=== PATIENT | male | born 1955 | race Caucasian/White ===

== ENCOUNTER 2017-04-10 16:31 | Emergency (ER) | payer MEDICARE ==
[~2017-04-10] VITALS: Ht 174 cm; Wt 79.0 kg
[2017-04-10 17:11] VITALS: BP 166/100
[2017-04-10] MEDS ORDERED: LIDOCAINE 1%, 20ML ONE (17:11)
[2017-04-10] MEDS ORDERED: LIDOCAINE 1%, 20ML INFIL ONE (17:30)
[2017-04-10] MEDS ORDERED: HYDROcodone/APAP 5/325 TABLET ONE (17:42)
[2017-04-10] MEDS ORDERED: CEFAZOLIN 1,000 MG ONE (17:42)
[2017-04-10] MEDS ORDERED: HYDROcodone/APAP 5/325 TABLET PO ONE (18:00)
[2017-04-10] MEDS ORDERED: CEFAZOLIN 1,000 MG IM ONE (18:00)
== END 2017-04-10 18:13 | disposition home or self-care (01) ==
LOC: ED 17:17
DX: L02.211 Cutaneous abscess of abdominal wall (principal); F41.9 Anxiety disorder, unspecified
CPT/HCPCS: 10060; 96372; 99285; J0690

== ENCOUNTER 2017-06-22 01:39 | Emergency (ER) | payer MEDICARE ==
[~2017-06-22] VITALS: Ht 182.9 cm; Wt 76.4 kg
[2017-06-22] MEDS ORDERED: IBUPROFEN 200 MG TABLET ONE (01:48)
[2017-06-22] MEDS ORDERED: ACETAMINOPHEN 500 MG TABLET ONE (01:48)
[2017-06-22] MEDS ORDERED: ACETAMINOPHEN 325 MG TABLET PO ONE (02:00)
[2017-06-22] MEDS ORDERED: IBUPROFEN 200 MG TABLET PO ONE (02:00)
[2017-06-22 02:22] LABS: RAPID INFLUENZA A Negative (Negative); RAPID INFLUENZA B Negative (Negative)
[2017-06-22 03:59] LABS: BASOPHILS # (AUTO) 0.02 x10^3/uL (0-0.1); BASOPHILS % (AUTO) 0 % (0-1); EOSINOPHILS # (AUTO) 0.02 x10^3/uL (0-0.4); EOSINOPHILS % (AUTO) 0 % (1-7); LYMPHOCYTES # (AUTO) 1.11 x10^3/uL (1-3.4); LYMPHOCYTES % (AUTO) 9 % (22-44); MD NO; MEAN CORPUSCULAR HEMOGLOBIN 32.2 pg (27.5-34.5); MEAN CORPUSCULAR HGB CONC 33.4 g/dL (33.2-36.2); MEAN CORPUSCULAR VOLUME 96.2 fL (81-97); MEAN PLATELET VOLUME 7.6 fL (7.4-10.4); MONOCYTES # (AUTO) 0.61 x10^3/uL (0.2-0.8); MONOCYTES % (AUTO) 5 % (2-9); NEUTROPHILS # (AUTO) 10.32 x10^3/uL (1.8-6.8); NEUTROPHILS % (AUTO) 85 % (42-75); PLATELET COUNT 188 x10^3/uL (130-400); RED BLOOD COUNT 4.57 x10^6/uL (4.38-5.82)
[2017-06-22] MEDS ORDERED: SODIUM CHLORIDE 0.9% 1,000ML IVBOLUS ONE ×2 (04:00→05:00)
[2017-06-22] MEDS ORDERED: SODIUM CHLORIDE FLUSH 10ML SYR IVF ONE (04:00)
[2017-06-22 04:08] LABS: ALANINE AMINOTRANSFERASE 24 U/L (12-78); ALBUMIN 3.4 g/dL (3.4-5.0); ANION GAP 8 mmol/L (5-15); CALCIUM 8.6 mg/dL (8.5-10.1); CHLORIDE 104 mmol/L (98-107)
[2017-06-22 04:10] LABS: ALKALINE PHOSPHATASE 117 U/L (45-117); BILIRUBIN,TOTAL 1.7 mg/dL (0.2-1.0); CREATININE 1.13 mg/dL (0.7-1.3); TOTAL PROTEIN 6.8 g/dL (6.4-8.2)
[2017-06-22 05:00] VITALS: BP 152/92
== END 2017-06-22 05:36 | disposition home or self-care (01) ==
LOC: ED 05:30
DX: K52.9 Noninfective gastroenteritis and colitis, unspecified (principal); F17.210 Nicotine dependence, cigarettes, uncomplicated; F41.9 Anxiety disorder, unspecified
CPT/HCPCS: 36415; 71045; 73030; 80053; 85025; 87400; 93005; 96360; 99285; J7030

== ENCOUNTER 2017-06-26 11:41 | Emergency (ER) | payer MEDICARE ==
[~2017-06-26] VITALS: Ht 180.3 cm; Wt 77.2 kg
[2017-06-26] MEDS ORDERED: ACETAMINOPHEN 500 MG TABLET ONE ×2 (12:58→13:00)
[2017-06-26] MEDS ORDERED: ACETAMINOPHEN 500 MG TABLET PO ONE (13:00)
[2017-06-26] MEDS ORDERED: KETOROLAC 30 MG/1 ML IM ONE (14:00)
[2017-06-26] MEDS ORDERED: KETOROLAC 30 MG/1 ML ONE (14:16)
[2017-06-26] MEDS ORDERED: LORazepam 1MG TABLET PO ONE (14:30)
[2017-06-26] MEDS ORDERED: LORazepam 1MG TABLET ONE (15:20)
[2017-06-26 16:21] VITALS: BP 155/82
== END 2017-06-26 16:34 | disposition home or self-care (01) ==
LOC: ED 16:22
DX: R51 Headache (principal); J01.90 Acute sinusitis, unspecified
CPT/HCPCS: 70450; 96372; 99284; J1885

== ENCOUNTER 2017-07-09 11:39 | Emergency (ER) | payer MEDICARE ==
[~2017-07-09] VITALS: Ht 172.7 cm; Wt 75.0 kg
[2017-07-09] MEDS ORDERED: SODIUM CHLORIDE FLUSH 10ML SYR IVF ONE (12:00)
[2017-07-09] MEDS ORDERED: SODIUM CHLORIDE 0.9% 1,000ML IVBOLUS ONE (12:00)
[2017-07-09] MEDS ORDERED: IBUPROFEN 200 MG TABLET PO ONE (12:00)
[2017-07-09 12:21] LABS: BASOPHILS # (AUTO) 0.03 x10^3/uL (0-0.1); BASOPHILS % (AUTO) 0 % (0-1); EOSINOPHILS # (AUTO) 0.02 x10^3/uL (0-0.4); EOSINOPHILS % (AUTO) 0 % (1-7); LYMPHOCYTES # (AUTO) 1.22 x10^3/uL (1-3.4); LYMPHOCYTES % (AUTO) 8 % (22-44); MD NO; MEAN CORPUSCULAR HEMOGLOBIN 31.5 pg (27.5-34.5); MEAN CORPUSCULAR HGB CONC 33.3 g/dL (33.2-36.2); MEAN CORPUSCULAR VOLUME 94.7 fL (81-97); MEAN PLATELET VOLUME 7.7 fL (7.4-10.4); MONOCYTES # (AUTO) 0.57 x10^3/uL (0.2-0.8); MONOCYTES % (AUTO) 4 % (2-9); NEUTROPHILS # (AUTO) 13.29 x10^3/uL (1.8-6.8); NEUTROPHILS % (AUTO) 88 % (42-75); PLATELET COUNT 241 x10^3/uL (130-400); RED BLOOD COUNT 4.44 x10^6/uL (4.38-5.82)
[2017-07-09] MEDS ORDERED: IBUPROFEN 200 MG TABLET ONE (12:23)
[2017-07-09 12:34] LABS: ALANINE AMINOTRANSFERASE 29 U/L (12-78); ALBUMIN 3.5 g/dL (3.4-5.0); ANION GAP 8 mmol/L (5-15); CALCIUM 8.3 mg/dL (8.5-10.1); CHLORIDE 103 mmol/L (98-107); CREATININE 1.17 mg/dL (0.7-1.3)
[2017-07-09] MEDS ORDERED: DEXT10TA7 PO (12:34)
[2017-07-09 12:36] LABS: ALKALINE PHOSPHATASE 125 U/L (45-117); BILIRUBIN,TOTAL 1.7 mg/dL (0.2-1.0); TOTAL PROTEIN 7.3 g/dL (6.4-8.2)
[2017-07-09 13:16] LABS: ACETAMINOPHEN < 2 mcg/mL (10-30); SALICYLATE LEVEL < 1.7 mg/dL (2.8-20.0)
[2017-07-09 13:45] LABS: MICROSCOPIC NOT IND
[2017-07-09 13:54] LABS: CULTURE INDICATED? NO
[2017-07-09 13:56] LABS: AMPHETAMINE SCREEN, URINE Positive (Negative); BARBITURATE SCREEN, URINE Negative (Negative); BENZODIAZEPINE SCREEN, URINE Negative (Negative); CANNABINOID SCREEN, URINE Positive (Negative); COCAINE SCREEN, URINE Negative (Negative); METHADONE SCREEN, URINE Negative (Negative); OPIATE SCREEN, URINE Negative (Negative)
[2017-07-09] MEDS ORDERED: CEFTRIAXONE PMX 1GM/50ML 50 ML IVPB ONE (15:00)
[2017-07-09] MEDS ORDERED: CEFTRIAXONE PMX 1GM/50ML 50 ML ONE (15:01)
[2017-07-09 15:40] VITALS: BP 150/98
== END 2017-07-09 15:43 | disposition home or self-care (01) ==
LOC: ED 12:08
DX: B34.9 Viral infection, unspecified (principal); F12.10 Cannabis abuse, uncomplicated; F15.10 Other stimulant abuse, uncomplicated
CPT/HCPCS: 36415; 71045; 80053; 80307; 80329; 81003; 83605; 84145; 85025; 87040; 93005; 96361; 96365; 99285; J0696; J7030; G0480

== ENCOUNTER 2017-08-25 15:59 | Emergency (ER) | payer MEDICARE ==
[~2017-08-25] VITALS: Ht 182.9 cm; Wt 76.0 kg
[~2017-08-25 15:59] MED LIST: DEXT10TA7 PO
[2017-08-25] MEDS ORDERED: SODIUM CHLORIDE 0.9% 1,000ML IVBOLUS ONE (16:30)
[2017-08-25] MEDS ORDERED: PLEASE ENTER HEIGHT AND WEIGHT MC SCH (16:30)
[2017-08-25] MEDS ORDERED: LAMO5TB.2 PO (16:51)
[2017-08-25] MEDS ORDERED: METH5TAB4 PO (16:51)
[2017-08-25 16:54] LABS: BASOPHILS # (AUTO) 0.03 x10^3/uL (0-0.1); BASOPHILS % (AUTO) 1 % (0-1); EOSINOPHILS % (AUTO) 2 % (1-7); LYMPHOCYTES % (AUTO) 35 % (22-44); MD NO; MEAN CORPUSCULAR HGB CONC 33.2 g/dL (33.2-36.2); MEAN CORPUSCULAR VOLUME 93.4 fL (81-97); MEAN PLATELET VOLUME 7.1 fL (7.4-10.4); MONOCYTES # (AUTO) 0.44 x10^3/uL (0.2-0.8); MONOCYTES % (AUTO) 9 % (2-9); NEUTROPHILS # (AUTO) 2.74 x10^3/uL (1.8-6.8); NEUTROPHILS % (AUTO) 54 % (42-75); PLATELET COUNT 238 x10^3/uL (130-400); RED BLOOD COUNT 4.25 x10^6/uL (4.38-5.82); RED CELL DISTRIBUTION WIDTH 14.6 % (9.4-14.8)
[2017-08-25 17:05] LABS: ALANINE AMINOTRANSFERASE 20 U/L (12-78); ALBUMIN 3.2 g/dL (3.4-5.0); ANION GAP 8 mmol/L (5-15); CALCIUM 8.7 mg/dL (8.5-10.1); CHLORIDE 105 mmol/L (98-107); CREATININE 1.18 mg/dL (0.7-1.3)
[2017-08-25 17:07] LABS: ALKALINE PHOSPHATASE 107 U/L (45-117); BILIRUBIN,TOTAL 0.6 mg/dL (0.2-1.0); SALICYLATE LEVEL < 1.7 mg/dL (2.8-20.0); TOTAL PROTEIN 6.8 g/dL (6.4-8.2)
[2017-08-25 17:09] LABS: ACETAMINOPHEN < 2 mcg/mL (10-30)
[2017-08-25 23:21] VITALS: BP 126/76
== END 2017-08-25 23:22 | disposition home or self-care (01) ==
LOC: ED 19:50
DX: T43.591A Poisoning by other antipsychotics and neuroleptics, accidental (unintentional), initial encounter (principal); R41.82 Altered mental status, unspecified; Y92.89 Other specified places as the place of occurrence of the external cause
CPT/HCPCS: 36415; 70450; 71045; 80053; 80307; 80329; 85025; 93005; 96360; 96361; 99285; J7030; G0480

== ENCOUNTER 2018-03-28 01:31 | Emergency (ER) | payer MEDICARE ==
[~2018-03-28] VITALS: Ht 175.3 cm; Wt 80.0 kg
[~2018-03-28 01:31] MED LIST changes: +CARV6.252 PO; +LAMO5TB.2 PO; +METH5TAB4 PO
[2018-03-28] MEDS ORDERED: ASPIRIN 81 MG TABLET CHEW PO ONE (02:00)
[2018-03-28] MEDS ORDERED: NITROGLYCERIN SINGLE TAB 0.4 MG SL PRN (02:00)
[2018-03-28] MEDS ORDERED: ASPIRIN 81 MG TABLET EC ONE (02:05)
[2018-03-28] MEDS ORDERED: ASPIRIN 81 MG TABLET CHEW ONE (02:06)
[2018-03-28 02:47] LABS: BASOPHILS # (AUTO) 0.02 x10^3/uL (0-0.1); BASOPHILS % (AUTO) 0 % (0-1); EOSINOPHILS # (AUTO) 0.06 x10^3/uL (0-0.4); EOSINOPHILS % (AUTO) 1 % (1-7); LYMPHOCYTES # (AUTO) 2.57 x10^3/uL (1-3.4); LYMPHOCYTES % (AUTO) 37 % (22-44); MD NO; MEAN CORPUSCULAR HEMOGLOBIN 32.9 pg (27.5-34.5); MEAN CORPUSCULAR HGB CONC 33.9 g/dL (33.2-36.2); MONOCYTES # (AUTO) 0.89 x10^3/uL (0.2-0.8); MONOCYTES % (AUTO) 13 % (2-9); NEUTROPHILS % (AUTO) 49 % (42-75); PLATELET COUNT 205 x10^3/uL (130-400); RED BLOOD COUNT 4.51 x10^6/uL (4.38-5.82); RED CELL DISTRIBUTION WIDTH 13.3 % (9.4-14.8)
[2018-03-28 02:58] LABS: ALANINE AMINOTRANSFERASE 43 U/L (12-78); ALBUMIN 3.8 g/dL (3.4-5.0); CHLORIDE 103 mmol/L (98-107); CREATININE 1.21 mg/dL (0.7-1.3)
[2018-03-28 03:02] LABS: ALKALINE PHOSPHATASE 147 U/L (45-117); TOTAL PROTEIN 7.7 g/dL (6.4-8.2); TROPONIN I < 0.015 ng/mL (0.000-0.045)
[2018-03-28 03:14] LABS: ANION GAP 7 mmol/L (5-15)
[2018-03-28] MEDS ORDERED: LABETALOL 5MG/ML, 20ML IVPush STA (03:20)
[2018-03-28] MEDS ORDERED: IBUPROFEN 800 MG TABLET ONE (03:24)
[2018-03-28] MEDS ORDERED: LABETALOL 5MG/ML, 20ML ONE (03:24)
[2018-03-28] MEDS ORDERED: IBUPROFEN 200 MG TABLET PO ONE (03:30)
[2018-03-28 05:19] VITALS: BP 156/106
== END 2018-03-28 05:30 | disposition home or self-care (01) ==
LOC: ED 01:59
DX: R07.89 Other chest pain (principal); I10 Essential (primary) hypertension; Z72.9 Problem related to lifestyle, unspecified; F17.200 Nicotine dependence, unspecified, uncomplicated; F15.10 Other stimulant abuse, uncomplicated; F31.9 Bipolar disorder, unspecified
CPT/HCPCS: 36415; 71045; 80053; 84484; 85025; 93005; 96374

== ENCOUNTER 2018-06-26 08:40 | Emergency (ER) | payer MEDICARE ==
[~2018-06-26] VITALS: Ht 177.8 cm; Wt 80.3 kg
[2018-06-26 09:44] LABS: BASOPHILS # (AUTO) 0.02 x10^3/uL (0-0.1); BASOPHILS % (AUTO) 0 % (0-1); EOSINOPHILS # (AUTO) 0.09 x10^3/uL (0-0.4); EOSINOPHILS % (AUTO) 1 % (1-7); LYMPHOCYTES # (AUTO) 2.45 x10^3/uL (1-3.4); LYMPHOCYTES % (AUTO) 34 % (22-44); MD NO; MEAN CORPUSCULAR HEMOGLOBIN 32.4 pg (27.5-34.5); MEAN CORPUSCULAR HGB CONC 33.3 g/dL (33.2-36.2); MEAN CORPUSCULAR VOLUME 97.3 fL (81-97); MEAN PLATELET VOLUME 7.8 fL (7.4-10.4); MONOCYTES # (AUTO) 0.53 x10^3/uL (0.2-0.8); MONOCYTES % (AUTO) 7 % (2-9); NEUTROPHILS # (AUTO) 4.14 x10^3/uL (1.8-6.8); NEUTROPHILS % (AUTO) 57 % (42-75); PLATELET COUNT 256 x10^3/uL (130-400); RED BLOOD COUNT 4.83 x10^6/uL (4.38-5.82); RED CELL DISTRIBUTION WIDTH 13.7 % (9.4-14.8)
--- NOTE | 2018-06-26 09:54 | NUR ---
MARKETING COMPLIANCE MANAGER: TO ROOM FROM YENIFER FERNANDEZ.
[2018-06-26 10:20] LABS: ALANINE AMINOTRANSFERASE 35 U/L (12-78); ALBUMIN 4.1 g/dL (3.4-5.0); ANION GAP 7 mmol/L (5-15); CALCIUM 9.6 mg/dL (8.5-10.1); CHLORIDE 106 mmol/L (98-107)
[2018-06-26 10:24] LABS: ALKALINE PHOSPHATASE 135 U/L (45-117); BILIRUBIN,TOTAL 0.5 mg/dL (0.2-1.0); TOTAL PROTEIN 7.5 g/dL (6.4-8.2); TROPONIN I < 0.015 ng/mL (0.000-0.045)
[2018-06-26] MEDS ORDERED: LISINOPRIL 20 MG TABLET PO ONE (10:30)
[2018-06-26] MEDS ORDERED: LISINOPRIL 20 MG TABLET ONE (10:36)
--- NOTE | 2018-06-26 10:40 | NUR ---
given lisinopril then will dc after rcheck vss
--- NOTE | 2018-06-26 11:24 | NUR ---
GIVEN DC INSTRUCTION PT UNDERSTOOD VSS BP STABILIZED WHEN DC HOME
[2018-06-26 11:27] VITALS: BP 136/88
== END 2018-06-26 11:29 | disposition home or self-care (01) ==
LOC: ED 11:23
DX: I10 Essential (primary) hypertension (principal); R06.02 Shortness of breath
CPT/HCPCS: 36415; 71045; 80053; 83880; 84484; 85025; 93005; 99284

== ENCOUNTER 2018-07-08 22:31 | Emergency (ER) | payer MEDICARE ==
[~2018-07-08] VITALS: Ht 175.3 cm; Wt 78.0 kg
[2018-07-08 22:42] VITALS: BP 163/111
--- NOTE | 2018-07-08 23:07 | NUR ---
PT CALLED TO ROOM FROM LOBBY
[2018-07-08] MEDS ORDERED: CEFTRIAXONE 1,000 MG IM ONE (23:30)
[2018-07-08] MEDS ORDERED: ONDANSETRON ODT 4 MG PO ONE (23:30)
[2018-07-08] MEDS ORDERED: AZITHROMYCIN 500 MG TABLET PO ONE (23:30)
[2018-07-08] MEDS ORDERED: ONDANSETRON ODT 4 MG ONE (23:30)
[2018-07-08] MEDS ORDERED: AZITHROMYCIN 250 MG TABLET ONE (23:31)
[2018-07-08] MEDS ORDERED: CEFTRIAXONE 250 MG ONE (23:31)
[2018-07-08 23:43] LABS: MICROSCOPIC NOT IND
[2018-07-08 23:44] LABS: BASOPHILS # (AUTO) 0.03 x10^3/uL (0-0.1); BASOPHILS % (AUTO) 0 % (0-1); EOSINOPHILS # (AUTO) 0.05 x10^3/uL (0-0.4); EOSINOPHILS % (AUTO) 1 % (1-7); LYMPHOCYTES # (AUTO) 2.27 x10^3/uL (1-3.4); LYMPHOCYTES % (AUTO) 27 % (22-44); MD NO; MEAN CORPUSCULAR HEMOGLOBIN 32.5 pg (27.5-34.5); MEAN CORPUSCULAR HGB CONC 33.6 g/dL (33.2-36.2); MEAN CORPUSCULAR VOLUME 96.8 fL (81-97); MONOCYTES # (AUTO) 0.77 x10^3/uL (0.2-0.8); MONOCYTES % (AUTO) 9 % (2-9); NEUTROPHILS # (AUTO) 5.22 x10^3/uL (1.8-6.8); NEUTROPHILS % (AUTO) 63 % (42-75); PLATELET COUNT 228 x10^3/uL (130-400); RED BLOOD COUNT 4.82 x10^6/uL (4.38-5.82)
[2018-07-08 23:45] LABS: CULTURE INDICATED? NO
[2018-07-08 23:51] LABS: ALANINE AMINOTRANSFERASE 27 U/L (12-78); ALBUMIN 3.5 g/dL (3.4-5.0); ANION GAP 5 mmol/L (5-15); CALCIUM 8.9 mg/dL (8.5-10.1); CHLORIDE 104 mmol/L (98-107); CREATININE 1.37 mg/dL (0.7-1.3)
[2018-07-08 23:53] LABS: ALKALINE PHOSPHATASE 128 U/L (45-117); BILIRUBIN,TOTAL 0.9 mg/dL (0.2-1.0); TOTAL PROTEIN 7.4 g/dL (6.4-8.2)
== END 2018-07-09 00:12 | disposition home or self-care (01) ==
LOC: ED 23:30
DX: A64 Unspecified sexually transmitted disease (principal); R11.2 Nausea with vomiting, unspecified; I10 Essential (primary) hypertension; F31.9 Bipolar disorder, unspecified; F17.200 Nicotine dependence, unspecified, uncomplicated
CPT/HCPCS: 36415; 80053; 81003; 83690; 85025; 87491; 87591; 96372; 99283; J0696; Q0162

== ENCOUNTER 2018-07-31 06:06 | Emergency (ER) | payer MEDICARE ==
[~2018-07-31] VITALS: Ht 177.8 cm; Wt 79.9 kg
[2018-07-31] MEDS ORDERED: LISI-167 PO (06:14)
[2018-07-31] MEDS ORDERED: LISINOPRIL 10 MG TABLET ONE (06:27)
[2018-07-31] MEDS ORDERED: LISINOPRIL 10 MG TABLET PO ONE (06:30)
--- NOTE | 2018-07-31 06:50 | NUR ---
PT MEDICATED ORDERED AND BP WILL BE RECHECKED AT 0700
[2018-07-31 06:59] VITALS: BP 165/109
--- NOTE | 2018-07-31 06:59 | NUR ---
REPORT FROM CHELY. PT IS ALERT, ORIENTED, WITH NAD. PT IS CONNECTED TO THE MONITOR. CALL LIGHT [place] BARKLEY. FRIEND AT BEDSIDE.
--- NOTE | 2018-07-31 07:38 | NUR ---
Patient given discharge instructions and they have confirmed that they understand the instructions. Patient ambulatory with steady gait.
== END 2018-07-31 07:40 | disposition home or self-care (01) ==
LOC: ED 07:32
DX: I10 Essential (primary) hypertension (principal); Z90.49 Acquired absence of other specified parts of digestive tract
CPT/HCPCS: 93005; 99283

== ENCOUNTER 2018-08-06 00:58 | Emergency (ER) | payer MEDICARE ==
[~2018-08-06] VITALS: Ht 177.8 cm; Wt 79.4 kg
[~2018-08-06 00:58] MED LIST changes: +LISI-167 PO
[2018-08-06 01:00] VITALS: BP 185/124
--- NOTE | 2018-08-06 01:14 | NUR ---
PT TO ROOM, ORAL TEMP 94.6. WARM BLANKETS AND JOSE BUSTERER WARMER APPLIED. Addendum: 08/06/18 at 0115 by NOEMI PT TO ROOM, ORAL TEMP 94.6. WARM BLANKETS AND JOSE EDNAS WARMER APPLIED.
[2018-08-06] MEDS ORDERED: PROPOFOL 10 MG/ML, 20ML IVPush ONE ×2 (02:00→03:00)
[2018-08-06] MEDS ORDERED: PROPOFOL 10 MG/ML, 20ML ONE (02:20)
--- NOTE | 2018-08-06 02:20 | NUR ---
ALL NEEDED EQUIPMENT AT BEDSIDE.
--- NOTE | 2018-08-06 02:30 | NUR ---
PROCEDURAL SEDATION STARTED.
--- NOTE | 2018-08-06 02:33 | NUR ---
PROCEDURE ENDED. FOREIGN BODY REMOVED. PATIENT STILL SEDATED. VSS. WILL CONTINUE TO MONITOR.
== END 2018-08-06 03:59 | disposition home or self-care (01) ==
LOC: ED 01:11
DX: T18.5XXA Foreign body in anus and rectum, initial encounter (principal)
CPT/HCPCS: 74018; 99285; J2704

== ENCOUNTER 2018-08-26 17:13 | Emergency (ER) | payer MEDICARE ==
[~2018-08-26] VITALS: Ht 177.8 cm; Wt 79.8 kg
[2018-08-26 17:56] VITALS: BP 172/97
[2018-08-26] MEDS ORDERED: LISINOPRIL 10 MG TABLET ONE (18:26)
[2018-08-26] MEDS ORDERED: LISINOPRIL 10 MG TABLET PO ONE (18:30)
--- NOTE | 2018-08-26 18:39 | NUR ---
Discharge instructions discussed with patient including when to return to emergency department, patient verbalizes understanding. Prescriptions provided to patient with instruction for use. Patient ambulates with steady gait to discharge desk in no acute distress.
== END 2018-08-26 18:40 | disposition home or self-care (01) ==
LOC: ED 18:34
DX: I10 Essential (primary) hypertension (principal); F31.9 Bipolar disorder, unspecified; Z76.0 Encounter for issue of repeat prescription; Z72.9 Problem related to lifestyle, unspecified; Z90.49 Acquired absence of other specified parts of digestive tract
CPT/HCPCS: 99283

== ENCOUNTER 2018-12-04 00:06 | Emergency (ER) | payer MEDICARE ==
[~2018-12-04] VITALS: Ht 177.8 cm; Wt 78.7 kg
[2018-12-04] MEDS ORDERED: LABETALOL 5MG/ML, 20ML IVPush ONE ×2 (00:30→02:00)
[2018-12-04] MEDS ORDERED: NITROGLYCERIN OINT 2%, 1GM TP ONE ×2 (00:30→01:08)
[2018-12-04] MEDS ORDERED: SODIUM CHLORIDE FLUSH 10ML SYR IVF ONE (00:30)
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
--- NOTE | 2018-12-04 00:55 | NUR ---
MED REQUEST SENT TO PHARMACY.
[2018-12-04] MEDS ORDERED: ONDANSETRON 2MG/ML, 2ML IVPush ONE (01:00)
[2018-12-04] MEDS ORDERED: SODIUM CHLORIDE 0.9% 1,000ML IVBOLUS ONE (01:00)
--- NOTE | 2018-12-04 01:04 | NUR ---
PT. OUT OF ROOM FOR CT.
[2018-12-04] MEDS ORDERED: ONDANSETRON 2MG/ML, 2ML ONE (01:08)
[2018-12-04 01:17] LABS: BASOPHILS # (AUTO) 0.03 x10^3/uL (0-0.1); BASOPHILS % (AUTO) 1 % (0-1); EOSINOPHILS # (AUTO) 0.07 x10^3/uL (0-0.4); EOSINOPHILS % (AUTO) 1 % (1-7); LYMPHOCYTES # (AUTO) 2.29 x10^3/uL (1-3.4); LYMPHOCYTES % (AUTO) 41 % (22-44); MD NO; MEAN CORPUSCULAR HEMOGLOBIN 32.6 pg (27.5-34.5); MEAN CORPUSCULAR HGB CONC 33.1 g/dL (33.2-36.2); MEAN CORPUSCULAR VOLUME 98.7 fL (81-97); MEAN PLATELET VOLUME 7.7 fL (7.4-10.4); MONOCYTES # (AUTO) 0.53 x10^3/uL (0.2-0.8); MONOCYTES % (AUTO) 9 % (2-9); NEUTROPHILS # (AUTO) 2.72 x10^3/uL (1.8-6.8); NEUTROPHILS % (AUTO) 48 % (42-75); PLATELET COUNT 226 x10^3/uL (130-400); RED BLOOD COUNT 4.59 x10^6/uL (4.38-5.82); RED CELL DISTRIBUTION WIDTH 13.2 % (9.4-14.8)
--- NOTE | 2018-12-04 01:21 | NUR ---
AWAITING MED FROM PHARMACY STILL.
[2018-12-04 01:29] LABS: ALBUMIN 3.9 g/dL (3.4-5.0); ANION GAP 5 mmol/L (5-15); CALCIUM 9.1 mg/dL (8.5-10.1); CHLORIDE 106 mmol/L (98-107); CREATININE 1.36 mg/dL (0.7-1.3); SALICYLATE LEVEL 1.9 mg/dL (2.8-20.0)
[2018-12-04 01:34] LABS: TROPONIN I < 0.015 ng/mL (0.000-0.045)
[2018-12-04 01:42] VITALS: BP 183/126
--- NOTE | 2018-12-04 01:56 | NUR ---
pt d/c with d/c summary and script. all questions answered. pt denies any other needs pertaining to this visit. pt ambulates to registration desk with steady gait for d/c home.
== END 2018-12-04 01:59 | disposition home or self-care (01) ==
LOC: ED 01:27
DX: I16.9 Hypertensive crisis, unspecified (principal); R51 Headache; R79.89 Other specified abnormal findings of blood chemistry; F31.9 Bipolar disorder, unspecified; Z90.49 Acquired absence of other specified parts of digestive tract; F17.200 Nicotine dependence, unspecified, uncomplicated
CPT/HCPCS: 36415; 70450; 71045; 80048; 80307; 82040; 83880; 84484; 85025; 93005; 96374; 96375; 99291; J2405; J7030

== ENCOUNTER 2018-12-28 08:09 | Emergency (ER) | payer MEDICARE ==
[~2018-12-28] VITALS: Ht 172.7 cm; Wt 76.0 kg
[2018-12-28 08:11] VITALS: BP 166/93
== END 2018-12-28 09:32 | disposition home or self-care (01) ==
LOC: ED 09:00
DX: J45.21 Mild intermittent asthma with (acute) exacerbation (principal); J40 Bronchitis, not specified as acute or chronic; I10 Essential (primary) hypertension; F17.200 Nicotine dependence, unspecified, uncomplicated
CPT/HCPCS: 71045; 99283; J7512

== ENCOUNTER 2019-02-03 21:24 | Emergency (ER) | payer MEDICARE ==
[~2019-02-03] VITALS: Ht 172.7 cm; Wt 76.9 kg
[2019-02-04 00:13] VITALS: BP 177/100
== END 2019-02-04 00:40 | disposition home or self-care (01) ==
LOC: ED 22:33
DX: R07.89 Other chest pain (principal); R05 Cough; I10 Essential (primary) hypertension; F15.10 Other stimulant abuse, uncomplicated; R51 Headache; J45.909 Unspecified asthma, uncomplicated; F31.9 Bipolar disorder, unspecified; F41.1 Generalized anxiety disorder; Z90.49 Acquired absence of other specified parts of digestive tract
CPT/HCPCS: 36415; 71045; 80053; 83605; 84145; 84484; 85025; 87040; 93005; 96374; 99284; J0360

== ENCOUNTER 2019-02-04 20:05 | Emergency (ER) | payer MEDICARE ==
[~2019-02-04] VITALS: Ht 172.7 cm; Wt 77.6 kg
[2019-02-04 21:15] VITALS: BP 174/106
== END 2019-02-04 22:18 | disposition home or self-care (01) ==
LOC: ED 22:11
DX: I12.9 Hypertensive chronic kidney disease with stage 1 through stage 4 chronic kidney disease, or unspecified chronic kidney disease (principal); N18.9 Chronic kidney disease, unspecified; Z90.49 Acquired absence of other specified parts of digestive tract; F41.1 Generalized anxiety disorder; F31.9 Bipolar disorder, unspecified
CPT/HCPCS: 36415; 80048; 82040; 85025; 93005; 99284

== ENCOUNTER 2019-06-13 16:50 | Emergency (ER) | payer MEDICARE ==
[~2019-06-13] VITALS: Ht 180.3 cm; Wt 78.0 kg
[2019-06-13 16:52] VITALS: BP 176/102
== END 2019-06-13 18:17 | disposition home or self-care (01) ==
LOC: ED 18:05
DX: J20.9 Acute bronchitis, unspecified (principal); F17.210 Nicotine dependence, cigarettes, uncomplicated; I10 Essential (primary) hypertension; Z90.49 Acquired absence of other specified parts of digestive tract
CPT/HCPCS: 71046; 99283; 99406

== ENCOUNTER 2019-08-11 17:24 | Emergency (ER) | payer MEDICARE ==
[~2019-08-11] VITALS: Ht 177.8 cm; Wt 79.0 kg
[2019-08-11 17:28] VITALS: BP 207/134
[2019-08-11 18:14] LABS: BASOPHILS # (AUTO) 0.03 x10^3/uL (0-0.1); BASOPHILS % (AUTO) 1 % (0-1); EOSINOPHILS # (AUTO) 0.12 x10^3/uL (0-0.4); EOSINOPHILS % (AUTO) 2 % (1-7); LYMPHOCYTES # (AUTO) 2.33 x10^3/uL (1-3.4); LYMPHOCYTES % (AUTO) 38 % (22-44); MD NO; MEAN CORPUSCULAR HEMOGLOBIN 32.2 pg (27.5-34.5); MEAN CORPUSCULAR HGB CONC 33.3 g/dL (33.2-36.2); MEAN CORPUSCULAR VOLUME 96.5 fL (81-97); MEAN PLATELET VOLUME 7.7 fL (7.4-10.4); MONOCYTES # (AUTO) 0.57 x10^3/uL (0.2-0.8); MONOCYTES % (AUTO) 9 % (2-9); NEUTROPHILS # (AUTO) 3.09 x10^3/uL (1.8-6.8); NEUTROPHILS % (AUTO) 50 % (42-75); PLATELET COUNT 228 x10^3/uL (130-400); RED BLOOD COUNT 4.83 x10^6/uL (4.38-5.82); RED CELL DISTRIBUTION WIDTH 13.9 % (9.4-14.8)
[2019-08-11 18:27] LABS: ALANINE AMINOTRANSFERASE 31 U/L (12-78); ALBUMIN 3.5 g/dL (3.4-5.0); ANION GAP 4 mmol/L (5-15); CALCIUM 8.9 mg/dL (8.5-10.1); CHLORIDE 107 mmol/L (98-107); CREATININE 1.35 mg/dL (0.7-1.3)
[2019-08-11 18:29] LABS: ALKALINE PHOSPHATASE 132 U/L (45-117); BILIRUBIN,TOTAL 0.7 mg/dL (0.2-1.0); TOTAL PROTEIN 7.4 g/dL (6.4-8.2)
--- NOTE | 2019-08-11 19:47 | NUR ---
PT CALLED TO ROOM FROM LOBBY
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
--- NOTE | 2019-08-11 20:43 | NUR ---
Note faustinajackie in ED - 08/11/19 at 2122 by BGLAESS PATIENT REFUSED EKG, STATED, "NO YOU CAN NOT DO AN EKG, JIM WIGGINS IN [place]." THE NEED FOR THE EKG EXPLANED TO PATIENT WITH NO EFFECT.
== END 2019-08-11 21:57 | disposition home or self-care (01) ==
LOC: ED 21:10
DX: R06.00 Dyspnea, unspecified (principal); F41.1 Generalized anxiety disorder; I10 Essential (primary) hypertension
CPT/HCPCS: 36415; 71045; 80053; 85025; 93005; 99285

== ENCOUNTER 2019-11-08 19:28 | Emergency (ER) | payer MEDICARE ==
[~2019-11-08] VITALS: Ht 177.8 cm; Wt 79.7 kg
[2019-11-08 19:31] VITALS: BP 197/114
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
[2019-11-08] MEDS ORDERED: GOLYTELY 4,000ML ORAL.SOL PO ONE (20:30)
--- NOTE | 2019-11-08 20:52 | NUR ---
MEDICATION ORDERED FROM PHARMACY
--- NOTE | 2019-11-08 21:26 | NUR ---
PER MD PT PROVIDED GOLYTELY TO TAKE HOME, PT EDUCATED ON CORRECT MEDICATION USE. PT VERBALIZED UNDERSTANDING.
== END 2019-11-08 21:29 | disposition home or self-care (01) ==
LOC: ED 21:14
DX: T18.5XXA Foreign body in anus and rectum, initial encounter (principal); J45.909 Unspecified asthma, uncomplicated; I10 Essential (primary) hypertension; F17.200 Nicotine dependence, unspecified, uncomplicated; Z76.0 Encounter for issue of repeat prescription; X58.XXXA Exposure to other specified factors, initial encounter; Y93.89 Activity, other specified; Y92.89 Other specified places as the place of occurrence of the external cause; Y99.8 Other external cause status
CPT/HCPCS: 74018; 99283

== ENCOUNTER 2019-11-09 06:23 | Emergency (ER) | payer MEDICARE ==
[~2019-11-09] VITALS: Ht 177.8 cm; Wt 82.0 kg
--- NOTE | 2019-11-09 06:42 | NUR ---
PT TO ED WITH C/O FOREIGN BODY IN RECTUM. WAS SEEN HERE YESTERDAY AND SENT HOME WITH [employer], REPORTS DRINKING 3/4 OF GOLYETLY WITH BOWEL MOVEMENTS, REPORTS CONTINUED RECTAL PAIN. PT CONNECTED TO MONITORING, CALL LIGHT WITHIN REACH, ALL SAFETY MEASURES IN PLACE.
--- NOTE | 2019-11-09 06:48 | NUR ---
RECEIVED REPORT FROM ABHISHEK MORRIS, PLAN OF CARE DISCUSSED
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
--- NOTE | 2019-11-09 07:46 | NUR ---
PT BACK FROM CT, VERBALZIED NO NEEDS AT THIS TIME
[2019-11-09] MEDS ORDERED: SODIUM CHLORIDE 0.9% 1,000 ML IV ONE (08:14)
[2019-11-09] MEDS ORDERED: PROPOFOL 10 MG/ML, 20ML ONE ×2 (08:27→12:11)
[2019-11-09] MEDS ORDERED: PROPOFOL 10 MG/ML, 20ML IVPush ONE (08:30)
[2019-11-09] MEDS ORDERED: SODIUM CHLORIDE FLUSH 10ML SYR IVF ONE (08:30)
--- NOTE | 2019-11-09 08:48 | NUR ---
EXPLAINED PROCEEDURAL SEDATION, PT VERBALZIED UNDERSTANDING. CONSENT VERBAL SIGNED
--- NOTE | 2019-11-09 09:30 | NUR ---
PROCEDURAL SEDATION PLEASE SEE PAPER CHART. PT TOLERATED WELL. UNSUCCESSFUL WITH REMOVAL OF FB.
--- NOTE | 2019-11-09 10:20 | NUR ---
AWAITING GI TEAM TO ARRIVE, EXPLAINED TO PATIENT. PT VERBALIZED UNDERSTANDING
--- NOTE | 2019-11-09 11:07 | NUR ---
GAVE REPORT TO ARSLAN MORRIS, ENDOSCOPY, PLAN OF CARE DISCUSSED.
--- NOTE | 2019-11-09 11:28 | NUR ---
[facility]
--- NOTE | 2019-11-09 11:54 | NUR ---
REPORT TO ODILON MORRIS, PLAN OF CARE DISCUSSED
[2019-11-09] MEDS ORDERED: FENTANYL PF 100 MCG/2ML IV PRN (12:00)
[2019-11-09] MEDS ORDERED: ONDANSETRON 2MG/ML, 2ML IVPush PRN (12:00)
[2019-11-09] MEDS ORDERED: MIDAZOLAM 1 MG/ML, 2ML IV PRN (12:00)
[2019-11-09] MEDS ORDERED: ACETAMINOPHEN 325 MG TABLET PO PRN (12:00)
[2019-11-09] MEDS ORDERED: ALBUTEROL SULFATE 2.5 MG/3 ML NPPB PRN (12:00)
[2019-11-09] MEDS ORDERED: OXYcodone 5 MG/5 ML ORAL.SOL UDC PO PRN (12:00)
[2019-11-09] MEDS ORDERED: LABETALOL 5MG/ML, 20ML IV PRN (12:00)
--- NOTE | 2019-11-09 12:04 | NUR ---
RECEIVED REPORT FROM MARELY MORRIS. ASSUMING CARE AT THIS TIME. PT AT ENDOSCOPY.
[2019-11-09] MEDS ORDERED: hydrALAzine 20 MG/ML, 1ML ONE ×2 (12:08→12:11)
--- NOTE | 2019-11-09 12:34 | NUR ---
RECEIVED REPORT FROM PACU. NO FB FOUND DURING COLONOSCOPY. PT STABLE. WILL RETURN TO ER ROOM AND DC WHEN READY.
--- NOTE | 2019-11-09 12:52 | NUR ---
PT BACK FROM PACU. PT RECONNECTED TO MONITORING. PT A&O4. NO NEEDS AT THIS TIME.
[2019-11-09 12:53] VITALS: BP 155/93
== END 2019-11-09 13:38 | disposition home or self-care (01) ==
LOC: ED 08:53 → EDIP 11:07 → UNDOADMIN 11:07
DX: T18.5XXA Foreign body in anus and rectum, initial encounter (principal); I10 Essential (primary) hypertension; J45.909 Unspecified asthma, uncomplicated; F17.210 Nicotine dependence, cigarettes, uncomplicated; Z90.49 Acquired absence of other specified parts of digestive tract; X58.XXXA Exposure to other specified factors, initial encounter; Y93.89 Activity, other specified; Y92.89 Other specified places as the place of occurrence of the external cause; Y99.8 Other external cause status
CPT/HCPCS: 45378; 74176; 99152; 99285; 99406; J0360; J2704; J7030; 96360; 96361

== ENCOUNTER 2019-11-09 22:59 | Emergency (ER) | payer MEDICARE ==
[~2019-11-09] VITALS: Ht 177.8 cm; Wt 81.1 kg
--- NOTE | 2019-11-09 23:10 | NUR ---
THIS IS A 64 YO MALE COMING IN FOR "I'VE HAD THIS TERRIBLE HEADACHE FOR WEEKS, AND IT GOES UP MY NECK AND IN TO MY BLOOD VESSELS AND MY HEAD IS JUST POUNDING. AND MY ANKLES HURT FROM MY SHOES". A&OX4, SPEAKING IN FULL SENTENCES, DENIES ANY RESPIRATORY SX OR CP, DENIES N/V, DENIES HX OF MIGRAINES. PT STATES "I GOOGLED MY SYMPTOMS AND I HAVE ALL THE SYMPTOMS OF MENINGITIS". DENIES ANY FEVERS, NO FEVERS IN TRIAGE, DENIES BODY ACHES OR CHILLS, OR CHANGE IN VISION. SPO2 AND BP MONITORING IN PLACE, ERP IN ROOM FOR EVAL. CALL LIGHT IN REACH
[2019-11-09] MEDS ORDERED: PROCHLORPERAZINE 5 MG/ML, 2ML IVPush ONE (23:30)
[2019-11-09] MEDS ORDERED: KETOROLAC 30 MG/1 ML IVPush ONE (23:30)
[2019-11-09] MEDS ORDERED: DIPHENHYDRAMINE 50 MG/ML, 1ML IVPush ONE (23:30)
[2019-11-09] MEDS ORDERED: PROCHLORPERAZINE 5 MG/ML, 2ML ONE (23:35)
[2019-11-09] MEDS ORDERED: KETOROLAC 30 MG/1 ML ONE (23:35)
[2019-11-09] MEDS ORDERED: DIPHENHYDRAMINE 50 MG/ML, 1ML ONE (23:35)
--- NOTE | 2019-11-09 23:55 | NUR ---
PIV PLACED, PATIENT MEDICATED PER EMAR
--- NOTE | 2019-11-10 00:13 | NUR ---
PATIENT STATES HEADCE IS SUBSIDING
--- NOTE | 2019-11-10 00:17 | NUR ---
ERP TO ROOM FOR RECHECK
[2019-11-10 00:20] VITALS: BP 147/98
--- NOTE | 2019-11-10 00:40 | NUR ---
Patient given discharge instructions and they have confirmed that they understand the instructions. Patient ambulatory with steady gait.
== END 2019-11-10 00:43 | disposition home or self-care (01) ==
LOC: ED 23:36
DX: G44.219 Episodic tension-type headache, not intractable (principal); I10 Essential (primary) hypertension; J45.909 Unspecified asthma, uncomplicated; F17.200 Nicotine dependence, unspecified, uncomplicated; Z90.49 Acquired absence of other specified parts of digestive tract
CPT/HCPCS: 96374; 96375; 99284; J0780; J1200; J1885

== ENCOUNTER 2020-02-06 11:09 | Emergency (ER) | payer MEDICARE ==
[~2020-02-06] VITALS: Ht 177.8 cm; Wt 78.8 kg
--- NOTE | 2020-02-06 11:38 | NUR ---
PT BROUGHT BACK FROM TRIAGE WITH CHIEF COMPLAINT OF FEELING POOR, "IM DYING, MAYBE I WAS POISNED". PAIN IN RIGHT SIDE, DRY COUGH FOR A FEW DAYS.
[2020-02-06 12:14] LABS: BASOPHILS # (AUTO) 0.03 x10^3/uL (0-0.1); BASOPHILS % (AUTO) 0 % (0-1); EOSINOPHILS # (AUTO) 0.12 x10^3/uL (0-0.4); EOSINOPHILS % (AUTO) 2 % (1-7); LYMPHOCYTES # (AUTO) 2.63 x10^3/uL (1-3.4); LYMPHOCYTES % (AUTO) 42 % (22-44); MD NO; MEAN CORPUSCULAR HEMOGLOBIN 31.9 pg (27.5-34.5); MEAN CORPUSCULAR HGB CONC 32.7 g/dL (33.2-36.2); MEAN CORPUSCULAR VOLUME 97.8 fL (81-97); MEAN PLATELET VOLUME 7.7 fL (7.4-10.4); MONOCYTES # (AUTO) 0.57 x10^3/uL (0.2-0.8); MONOCYTES % (AUTO) 9 % (2-9); NEUTROPHILS # (AUTO) 2.95 x10^3/uL (1.8-6.8); NEUTROPHILS % (AUTO) 47 % (42-75); PLATELET COUNT 187 x10^3/uL (130-400); RED BLOOD COUNT 4.46 x10^6/uL (4.38-5.82); RED CELL DISTRIBUTION WIDTH 13.6 % (9.4-14.8)
[2020-02-06 12:28] LABS: ALANINE AMINOTRANSFERASE 31 U/L (12-78); ALBUMIN 3.5 g/dL (3.4-5.0); ANION GAP 5 mmol/L (5-15); CALCIUM 8.6 mg/dL (8.5-10.1); CHLORIDE 108 mmol/L (98-107); CREATININE 1.36 mg/dL (0.7-1.3)
[2020-02-06 12:32] LABS: ALKALINE PHOSPHATASE 101 U/L (45-117); BILIRUBIN,TOTAL 1.1 mg/dL (0.2-1.0); TOTAL PROTEIN 6.8 g/dL (6.4-8.2); TROPONIN I < 0.015 ng/mL (0.000-0.045)
[2020-02-06 12:46] VITALS: BP 177/117
--- NOTE | 2020-02-06 12:47 | NUR ---
Report provided from Gris. Pt resting, states feeling "less anxious". BP improving. Pt has no needs at this time. Updated on POC.
== END 2020-02-06 13:17 | disposition home or self-care (01) ==
LOC: ED 11:37
DX: R06.00 Dyspnea, unspecified (principal); R07.89 Other chest pain; R05 Cough; I10 Essential (primary) hypertension; J45.909 Unspecified asthma, uncomplicated; Z90.49 Acquired absence of other specified parts of digestive tract
CPT/HCPCS: 36415; 71045; 80053; 84484; 85025; 93005; 99285

== ENCOUNTER 2020-06-05 13:56 | Emergency (ER) | payer MEDICARE ==
[~2020-06-05] VITALS: Ht 180.3 cm; Wt 80.7 kg
[2020-06-05 14:50] LABS: BASOPHILS % (AUTO) 1 % (0-1); EOSINOPHILS % (AUTO) 2 % (1-7); LYMPHOCYTES % (AUTO) 30 % (22-44); MEAN CORPUSCULAR HEMOGLOBIN 32.3 pg (27.5-34.5); MEAN CORPUSCULAR HGB CONC 33.4 g/dL (33.2-36.2); MEAN PLATELET VOLUME 7.4 fL (7.4-10.4); MONOCYTES % (AUTO) 13 % (2-9); NEUTROPHILS % (AUTO) 54 % (42-75); PLATELET COUNT 315 x10^3/uL (130-400); RED BLOOD COUNT 4.51 x10^6/uL (4.38-5.82); RED CELL DISTRIBUTION WIDTH 13.4 % (9.4-14.8)
[2020-06-05 14:55] LABS: MD NO
[2020-06-05 15:01] LABS: ALBUMIN 3.4 g/dL (3.4-5.0); ANION GAP 4 mmol/L (5-15); CALCIUM 9.6 mg/dL (8.5-10.1); CHLORIDE 105 mmol/L (98-107)
[2020-06-05 15:10] LABS: ALANINE AMINOTRANSFERASE 245 U/L (12-78); ALKALINE PHOSPHATASE 405 U/L (45-117); BILIRUBIN,TOTAL 0.7 mg/dL (0.2-1.0); CREATININE 1.37 mg/dL (0.7-1.3); TOTAL PROTEIN 8.5 g/dL (6.4-8.2)
--- NOTE | 2020-06-05 16:15 | NUR ---
COVER STRIPPER: PT TO ROOM FROM YENIFER FERNANDEZ
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
--- NOTE | 2020-06-05 16:50 | NUR ---
URINE SAMPLE COLLECTED AND SENT TO LAB.
[2020-06-05 16:57] LABS: MICROSCOPIC NOT IND
[2020-06-05] MEDS ORDERED: SODIUM CHLORIDE FLUSH 10ML SYR IVF ONE (17:30)
[2020-06-05] MEDS ORDERED: SODIUM CHLORIDE 0.9% 1,000ML IVBOLUS ONE (17:30)
[2020-06-05] MEDS ORDERED: LORazepam 2 MG/ML, 1ML IVPush ONE (17:30)
--- NOTE | 2020-06-05 17:58 | NUR ---
PATIENT MEDICATED PER eMAR, NADN, VSS, CALL LIGHT WITHIN REACH.
[2020-06-05] MEDS ORDERED: BICILLIN-LA 1,200,000 UNITS/2 ML IM ONE (18:00)
[2020-06-05 19:50] VITALS: BP 104/87
--- NOTE | 2020-06-05 19:51 | NUR ---
Patient given discharge instructions and prescription and they have confirmed that they understand the instructions, all questions answered. Patient stable and ambulatory with steady gait from ED.
== END 2020-06-05 19:51 | disposition home or self-care (01) ==
LOC: ED 15:57
DX: R21 Rash and other nonspecific skin eruption (principal); R05 Cough; I10 Essential (primary) hypertension; Z90.49 Acquired absence of other specified parts of digestive tract; F17.200 Nicotine dependence, unspecified, uncomplicated
CPT/HCPCS: 36415; 71045; 80053; 81003; 85025; 86592; 96372; 99284; J0561; 86780

== ENCOUNTER 2020-06-16 12:18 | Emergency (ER) | payer MEDICARE ==
[~2020-06-16] VITALS: Ht 177.8 cm; Wt 81.6 kg
[2020-06-16] MEDS ORDERED: BICILLIN-LA 2,400,000 UNITS/4 ML IM ONE (13:00)
--- NOTE | 2020-06-16 13:00 | NUR ---
Medicated per emar with 2400 units of im bicillin to right gluteus
[2020-06-16 13:40] VITALS: BP 137/79
== END 2020-06-16 13:42 | disposition home or self-care (01) ==
LOC: ED 12:47
DX: A51.49 Other secondary syphilitic conditions (principal); I10 Essential (primary) hypertension; F17.200 Nicotine dependence, unspecified, uncomplicated
CPT/HCPCS: 96372; 99283; J0561

== ENCOUNTER 2020-07-17 09:13 | Emergency (ER) | payer MEDICARE ==
[~2020-07-17] VITALS: Ht 177.8 cm; Wt 81.1 kg
[2020-07-17 09:15] VITALS: BP 182/111
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
--- NOTE | 2020-07-17 09:52 | NUR ---
YELLOW SLIP SENT TO PHARMACY FOR MEDS PER AUG.
[2020-07-17] MEDS ORDERED: BICILLIN-LA 2,400,000 UNITS/4 ML IM ONE (10:00)
[2020-07-17] MEDS ORDERED: CEFTRIAXONE 250 MG IM ONE (10:00)
[2020-07-17] MEDS ORDERED: AZITHROMYCIN 500 MG TABLET PO ONE (10:00)
[2020-07-17] MEDS ORDERED: CEFTRIAXONE 250 MG ONE (10:02)
[2020-07-17] MEDS ORDERED: hydrOXyzine 50MG TABLET ONE (10:02)
[2020-07-17] MEDS ORDERED: AZITHROMYCIN 250 MG TABLET ONE (10:02)
== END 2020-07-17 10:34 | disposition home or self-care (01) ==
LOC: ED 09:29
DX: L20.9 Atopic dermatitis, unspecified (principal); I10 Essential (primary) hypertension; F17.210 Nicotine dependence, cigarettes, uncomplicated; Z20.2 Contact with and (suspected) exposure to infections with a predominantly sexual mode of transmission; Z90.49 Acquired absence of other specified parts of digestive tract
CPT/HCPCS: 87491; 87591; 96372; 99284; 99406; J0561; J0696; Q0177

== ENCOUNTER 2020-08-06 18:43 | Emergency (ER) | payer MEDICARE ==
[~2020-08-06] VITALS: Ht 177.8 cm; Wt 84.3 kg
[2020-08-06 18:51] VITALS: BP 188/115
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
[2020-08-06 20:05] LABS: MICROSCOPIC AUTO
[2020-08-06 20:08] LABS: BASOPHILS % (AUTO) 1 % (0-1); EOSINOPHILS % (AUTO) 4 % (1-7); LYMPHOCYTES % (AUTO) 43 % (22-44); MEAN CORPUSCULAR HEMOGLOBIN 31.8 pg (27.5-34.5); MEAN CORPUSCULAR HGB CONC 33.6 g/dL (33.2-36.2); MEAN PLATELET VOLUME 7.3 fL (7.4-10.4); MONOCYTES % (AUTO) 12 % (2-9); NEUTROPHILS % (AUTO) 41 % (42-75); PLATELET COUNT 207 x10^3/uL (130-400); RED BLOOD COUNT 4.76 x10^6/uL (4.38-5.82); RED CELL DISTRIBUTION WIDTH 13.9 % (9.4-14.8)
[2020-08-06 20:09] LABS: MD NO
[2020-08-06 20:19] LABS: ALANINE AMINOTRANSFERASE 45 U/L (12-78); ALBUMIN 3.5 g/dL (3.4-5.0); ANION GAP 8 mmol/L (5-15); CALCIUM 8.8 mg/dL (8.5-10.1); CHLORIDE 106 mmol/L (98-107); CREATININE 1.49 mg/dL (0.7-1.3)
--- NOTE | 2020-08-06 20:27 | NUR ---
pt resting comfortably in bed, waiting for lab results.
[2020-08-06 20:29] LABS: ALKALINE PHOSPHATASE 134 U/L (45-117); BILIRUBIN,TOTAL 0.6 mg/dL (0.2-1.0); TOTAL PROTEIN 7.7 g/dL (6.4-8.2)
--- NOTE | 2020-08-06 21:26 | NUR ---
pt a&ox4,no acute distress at this time. results for his tests given,and phone number for medical records given so pt can check on the 2 send out labs done. as he has no personal phone and can't receive a phone call. pt ambulated and v/u of d/c instructions and f/u instructions and he will go to the clinic, per pt, when he needs treatment.
== END 2020-08-06 21:28 | disposition home or self-care (01) ==
LOC: ED 21:02
DX: K62.89 Other specified diseases of anus and rectum (principal); I12.9 Hypertensive chronic kidney disease with stage 1 through stage 4 chronic kidney disease, or unspecified chronic kidney disease; N18.9 Chronic kidney disease, unspecified; Z20.2 Contact with and (suspected) exposure to infections with a predominantly sexual mode of transmission; R31.29 Other microscopic hematuria; F15.10 Other stimulant abuse, uncomplicated; R53.1 Weakness; R00.0 Tachycardia, unspecified; R42 Dizziness and giddiness; R10.9 Unspecified abdominal pain; J45.909 Unspecified asthma, uncomplicated
CPT/HCPCS: 36415; 74176; 80053; 81001; 84443; 85025; 86592; 86780; 87491; 87591; 87806; 93005; 99285; G0475

== ENCOUNTER 2020-10-20 12:23 | Emergency (ER) | payer MEDICARE ==
[~2020-10-20] VITALS: Ht 177.8 cm; Wt 81.2 kg
[2020-10-20 12:32] VITALS: BP 171/115
[2020-10-20] MEDS ORDERED: LIDOCAINE 1%, 2ML INFIL ONE (13:00)
[2020-10-20] MEDS ORDERED: BUPIVACAINE 0.25% INFIL ONE (13:00)
[2020-10-20] MEDS ORDERED: BUPIVACAINE 0.25% ONE (13:08)
[2020-10-20] MEDS ORDERED: LIDOCAINE-MPF 1%, 5ML ONE (13:08)
--- NOTE | 2020-10-20 13:24 | NUR ---
ERP TO BEDSIDE TO [facility] DENTAL ABSCESSES VIA LIDO/BUPIVICAINE
[2020-10-20] MEDS ORDERED: PENICILLIN VK 500MG TABLET ONE (13:35)
[2020-10-20] MEDS ORDERED: PENICILLIN VK 500MG TABLET PO SCH (13:36)
--- NOTE | 2020-10-20 13:45 | NUR ---
REVIEWED POC, SXS TO WATCH FOR, IMPORTANCE OF DENTIST F/U (PROVIDED WITH LIST OF LOCAL DENTISTS)-TEACH BACK SUCCESSFUL
== END 2020-10-20 13:48 | disposition home or self-care (01) ==
LOC: ED 12:30
DX: K02.9 Dental caries, unspecified (principal); K04.7 Periapical abscess without sinus; Z72.9 Problem related to lifestyle, unspecified; F17.210 Nicotine dependence, cigarettes, uncomplicated; F15.10 Other stimulant abuse, uncomplicated; F12.10 Cannabis abuse, uncomplicated; J45.909 Unspecified asthma, uncomplicated; I10 Essential (primary) hypertension; Z90.49 Acquired absence of other specified parts of digestive tract
CPT/HCPCS: 41800; 99284; 99406; J3490

== ENCOUNTER 2021-01-11 20:36 | Emergency (ER) | payer MEDICARE ==
[~2021-01-11] VITALS: Ht 177.8 cm; Wt 83.9 kg
[2021-01-11 21:14] LABS: BASOPHILS % (AUTO) 1 % (0-1); EOSINOPHILS % (AUTO) 1 % (1-7); LYMPHOCYTES % (AUTO) 38 % (22-44); MEAN CORPUSCULAR HEMOGLOBIN 32.8 pg (27.5-34.5); MEAN PLATELET VOLUME 7.6 fL (7.4-10.4); MONOCYTES % (AUTO) 10 % (2-9); NEUTROPHILS % (AUTO) 51 % (42-75); PLATELET COUNT 201 x10^3/uL (130-400); RED BLOOD COUNT 4.61 x10^6/uL (4.38-5.82); RED CELL DISTRIBUTION WIDTH 13.4 % (9.4-14.8)
[2021-01-11 21:23] LABS: ALBUMIN 3.6 g/dL (3.4-5.0); ANION GAP 7 mmol/L (5-15); CALCIUM 9.1 mg/dL (8.5-10.1); CHLORIDE 108 mmol/L (98-107); CREATININE 1.38 mg/dL (0.7-1.3)
[2021-01-11 21:26] LABS: TROPONIN I < 0.015 ng/mL (0.000-0.045)
--- NOTE | 2021-01-12 01:46 | NUR ---
DRUM HANDLER: PT. TO ROOM FROM LOBBY AT THIS TIME.
[2021-01-12] MEDS ORDERED: NITROGLYCERIN OINT 2%, 1GM TP ONE ×2 (02:00→02:15)
[2021-01-12] MEDS ORDERED: LABETALOL 5MG/ML, 20ML IVPush ONE (02:00)
[2021-01-12] MEDS ORDERED: ACETAMINOPHEN 325 MG TABLET PO ONE (02:00)
[2021-01-12] MEDS ORDERED: LABETALOL 5MG/ML, 20ML ONE (02:16)
[2021-01-12] MEDS ORDERED: ACETAMINOPHEN 325 MG TABLET ONE (02:16)
--- NOTE | 2021-01-12 03:04 | NUR ---
patient sitting comfortably in bed. no current needs at this time. Patient brought water per request
[2021-01-12 03:15] VITALS: BP 149/103
== END 2021-01-12 03:27 | disposition home or self-care (01) ==
LOC: ED 21:00
DX: R07.2 Precordial pain (principal); I10 Essential (primary) hypertension; R51.9 Headache, unspecified; R94.31 Abnormal electrocardiogram [ECG] [EKG]; J45.909 Unspecified asthma, uncomplicated; F17.200 Nicotine dependence, unspecified, uncomplicated; Z90.49 Acquired absence of other specified parts of digestive tract
CPT/HCPCS: 36415; 70450; 71045; 80048; 82040; 84484; 85025; 93005; 96374; 99285

== ENCOUNTER 2021-03-13 18:33 | Emergency (ER) | payer MEDICARE ==
[~2021-03-13] VITALS: Ht 177.8 cm; Wt 83.0 kg
[2021-03-13 20:17] LABS: BASOPHILS % (AUTO) 1 % (0-1); EOSINOPHILS % (AUTO) 1 % (1-7); LYMPHOCYTES % (AUTO) 42 % (22-44); MEAN CORPUSCULAR HEMOGLOBIN 32.2 pg (27.5-34.5); MEAN CORPUSCULAR HGB CONC 34.1 g/dL (33.2-36.2); MEAN PLATELET VOLUME 7.6 fL (7.4-10.4); MONOCYTES % (AUTO) 10 % (2-9); NEUTROPHILS % (AUTO) 46 % (42-75); PLATELET COUNT 218 x10^3/uL (130-400); RED BLOOD COUNT 4.65 x10^6/uL (4.38-5.82); RED CELL DISTRIBUTION WIDTH 13.1 % (9.4-14.8)
[2021-03-13 20:27] LABS: ALBUMIN 3.4 g/dL (3.4-5.0); ANION GAP 5 mmol/L (5-15); CALCIUM 8.8 mg/dL (8.5-10.1); CHLORIDE 107 mmol/L (98-107); CREATININE 1.32 mg/dL (0.7-1.3)
[2021-03-13] MEDS ORDERED: AMLODIPINE 5 MG TABLET PO ONE (20:30)
[2021-03-13 20:31] LABS: TROPONIN I < 0.015 ng/mL (0.000-0.045)
[2021-03-13] MEDS ORDERED: AMLODIPINE 5 MG TABLET ONE (21:00)
[2021-03-13 23:34] VITALS: BP 150/90
== END 2021-03-13 23:38 | disposition home or self-care (01) ==
LOC: ED 21:03
DX: I10 Essential (primary) hypertension (principal)
CPT/HCPCS: 36415; 71046; 74021; 80048; 82040; 84484; 85025; 93005; 99285